=== PATIENT | male | born 1980 | race Caucasian/White ===

== ENCOUNTER 2018-11-26 13:42 | Emergency (ER) | payer SELFPAY ==
[2018-11-26] MEDS: HYDROCODONE/APAP (5/325) TAB PO (15:04)
[2018-11-26] MEDS: DIPHTH/TET/ACEL PERTUSS (ADULT) 0.5 ML VIAL IM* (15:06)
== END 2018-11-26 16:51 | disposition home or self-care (01) ==
LOC: FTE 13:42
DX: S61.217A Laceration without foreign body of left little finger without damage to nail, initial encounter (principal); W26.8XXA Contact with other sharp object(s), not elsewhere classified, initial encounter; Y92.9 Unspecified place or not applicable; Z23 Encounter for immunization
CPT/HCPCS: 12001; 90471; 90715; 99283-25

== ENCOUNTER 2018-11-28 07:07 | Emergency (ER) | payer SELFPAY | END 2018-11-28 08:07 | disposition home or self-care (01) | LOC: FTE 07:07 | DX: Z48.01 Encounter for change or removal of surgical wound dressing (principal) | CPT/HCPCS: 99281 ==

== ENCOUNTER 2018-12-06 07:24 | Emergency (ER) | payer SELFPAY | END 2018-12-06 08:28 | disposition home or self-care (01) | LOC: FTE 08:28 | DX: Z48.02 Encounter for removal of sutures (principal) | CPT/HCPCS: 99281 ==